=== PATIENT | female | born 1940 | race Caucasian/White ===

== ENCOUNTER 2022-06-13 12:07 | Inpatient (IN) ==
[2022-06-13] MEDS ORDERED: *HR* FentaNYL (PF) 100 MCG/2 ML VIAL IVP ONE (12:16)
[2022-06-13] MEDS ORDERED: 0.9 % Sodium Chloride 500 ML IVC ONE (12:16)
[2022-06-13 15:32] LABS: Basophils % 0.3 %; Eosinophils % 0.2 %; Hematocrit 40.9 % (35.3-44.9); Hemoglobin 13.7 g/dL (11.5-15.4); Immature Granulocytes % 0.4 % (0-4); Lymphocytes # 0.9 K/mcL (0.6-4.6); Lymphocytes % 7.5 %; Mean Corpuscular HGB Conc 33.5 g/dL (31.6-35.5); Mean Corpuscular Hemoglobin 31.1 pg (28.0-33.3); Mean Platelet Volume 10.9 fL (9.4-12.4); Monocytes % 8.8 %; Neutrophils # 9.6 K/mcL (1.6-8.9); Platelet Count 225 K/mcL (140-400); Red Cell Distribution Width 13.3 % (11.5-14.5); Segmented Neutrophils % 82.8 %; White Blood Count 11.5 K/mcL (4.3-11.1)
[2022-06-13 15:42] LABS: INR 1.1; Prothrombin Time 12.3 Seconds (9.4-12.1)
[2022-06-13 15:45] LABS: Activated Partial Thrombo Time 32.6 Seconds (26.0-36.0)
[2022-06-13 15:51] LABS: BUN/Creatinine Ratio 20 (6-26); Blood Urea Nitrogen 18 mg/dL (8-23); Calcium 9.4 mg/dL (8.6-10.3); Carbon Dioxide 26 mEq/L (23-29); Chloride 105 mEq/L (98-107); Glucose 107 mg/dL (70-105); Osmolality,Calculated 294 (280-300); Potassium 3.3 mEq/L (3.5-5.1); Sodium 141 mEq/L (136-145); eGFR For African Americans > 60 (> 60); eGFR For Non-African Americans 60 (> 60)
[2022-06-13] MEDS ORDERED: Perflutren Lipid Microsphere 1.3 ML in 0.9 % Sodium Chloride 8.7 ML IVP PRN (21:38)
[2022-06-13] MEDS ORDERED: Naloxone 0.4 MG/ML INJ IVP PRN (21:58)
[2022-06-13] MEDS ORDERED: Ondansetron 4 MG/2 ML VIAL IVP PRN (22:12)
[2022-06-13] MEDS ORDERED: 0.9 % Sodium Chloride 1,000 ML IVC SCH (22:15)
[2022-06-13] MEDS ORDERED: Potassium Chloride Elixir 20 MEQ/15 ML UDC PO ONE (22:22)
[2022-06-13] MEDS ORDERED: tiZANidine 4 MG TABLET PO PRN (22:36)
[2022-06-14 00:02] LABS: Bilirubin,Urine Negative (Negative); Blood,Urine Negative (Negative); Clarity,Urine Clear (Clear); Color,Urine Light-Yellow (Yellow); Glucose,Urine (UA) Normal (Normal); Ketones,Urine 20 mg/dL (Negative); Leukocyte Esterase,Urine Negative (Negative); Nitrite,Urine Negative (Negative); Protein,Urine Negative (Neg-Trace); Specific Gravity,Urine 1.012 (1.010-1.025); Urobilinogen,Urine Normal (Normal)
[2022-06-14] MEDS ORDERED: *HR* FentaNYL (PF) 100 MCG/2 ML VIAL IVP PRN (09:02)
[2022-06-14] MEDS ORDERED: Lidocaine -MPF 2% 5 ML VIAL ONE (09:03)
[2022-06-14] MEDS ORDERED: *HR* Propofol 200 MG/20 ML VIAL IVP ONE (09:03)
[2022-06-14] MEDS ORDERED: Ondansetron 4 MG/2 ML VIAL ONE (10:10)
[2022-06-14] MEDS ORDERED: Tranexamic Acid 1,000 MG/10 ML VIAL ONE (10:33)
[2022-06-14] MEDS ORDERED: EPHEDrine 50 MG/ML VIAL ONE (10:35)
[2022-06-14] MEDS ORDERED: *HR* HYDROMORPHONE 2 MG/ML VIAL ONE (10:46)
[2022-06-14] MEDS ORDERED: *HR* OxyCODONE/APAP 5/325 TABLET PO PRN (11:26)
[2022-06-14 13:39] LABS: Hematocrit 40.6 % (35.3-44.9); Hemoglobin 13.4 g/dL (11.5-15.4); Mean Corpuscular Hemoglobin 31.2 pg (28.0-33.3); Mean Corpuscular Volume 94.6 fL (83.0-100.0); Mean Platelet Volume 10.7 fL (9.4-12.4); Platelet Count 207 K/mcL (140-400); Red Blood Count 4.29 M/mcL (3.82-4.97); Red Cell Distribution Width 13.6 % (11.5-14.5); White Blood Count 14.6 K/mcL (4.3-11.1)
[2022-06-14 13:46] LABS: Estimated Average Glucose 108 mg/dl; Hemoglobin A1C 5.4 %
[2022-06-14 14:03] LABS: % Iron Saturation 13 % (15-50); BUN/Creatinine Ratio 23 (6-26); Blood Urea Nitrogen 22 mg/dL (8-23); Calcium 9.1 mg/dL (8.6-10.3); Carbon Dioxide 22 mEq/L (23-29); Chloride 107 mEq/L (98-107); Chol/HDL Ratio 2.8 (0-4.9); Cholesterol 212 mg/dL (< 200); Glucose 144 mg/dL (70-105); HDL Cholesterol 75 mg/dL (40-59); Iron 34 mcg/dL (50-170); LDL Cholesterol,Calculated 122 mg/dL (< 100); Osmolality,Calculated 294 (280-300); Potassium 3.9 mEq/L (3.5-5.1); Sodium 139 mEq/L (136-145); Transferrin 194 mg/dL (203-362); Triglycerides 74 mg/dL (< 150); Troponin I < 0.03 ng/mL (< 0.04); eGFR For African Americans > 60 (> 60); eGFR For Non-African Americans 57 (> 60)
[2022-06-14 14:20] LABS: Ferritin 149 ng/mL (10-120)
[2022-06-14] MEDS: CeFAZolin 2 GM/120 ML BAG IVPB SCH ×2 (16:24→23:42)
[2022-06-15] MEDS: Acetaminophen 325 MG TABLET PO PRN ×2 (05:06→12:46)
[2022-06-15 05:57] LABS: Mean Corpuscular HGB Conc 33.3 g/dL (31.6-35.5); Mean Corpuscular Hemoglobin 31.3 pg (28.0-33.3); Mean Corpuscular Volume 93.8 fL (83.0-100.0); Mean Platelet Volume 11.2 fL (9.4-12.4); Platelet Count 201 K/mcL (140-400); Red Blood Count 3.84 M/mcL (3.82-4.97); Red Cell Distribution Width 13.8 % (11.5-14.5); White Blood Count 13.2 K/mcL (4.3-11.1)
[2022-06-15 06:16] LABS: BUN/Creatinine Ratio 33 (6-26); Blood Urea Nitrogen 33 mg/dL (8-23); Calcium 8.8 mg/dL (8.6-10.3); Carbon Dioxide 24 mEq/L (23-29); Chloride 106 mEq/L (98-107); Glucose 116 mg/dL (70-105); Osmolality,Calculated 294 (280-300); Sodium 138 mEq/L (136-145); eGFR For African Americans > 60 (> 60); eGFR For Non-African Americans 52 (> 60)
[2022-06-15] MEDS: Apixaban 2.5 MG TABLET PO SCH ×2 (09:53→20:26)
[2022-06-16] MEDS: Acetaminophen 325 MG TABLET PO PRN ×3 (01:05→21:53)
[2022-06-16 04:27] LABS: Hematocrit 32.2 % (35.3-44.9); Hemoglobin 10.6 g/dL (11.5-15.4); Mean Corpuscular HGB Conc 32.9 g/dL (31.6-35.5); Mean Corpuscular Hemoglobin 31.2 pg (28.0-33.3); Mean Corpuscular Volume 94.7 fL (83.0-100.0); Mean Platelet Volume 11.6 fL (9.4-12.4); Platelet Count 193 K/mcL (140-400); Red Cell Distribution Width 13.8 % (11.5-14.5)
[2022-06-16 05:31] LABS: BUN/Creatinine Ratio 37 (6-26); Blood Urea Nitrogen 34 mg/dL (8-23); Calcium 8.6 mg/dL (8.6-10.3); Carbon Dioxide 26 mEq/L (23-29); Chloride 108 mEq/L (98-107); Glucose 121 mg/dL (70-105); Osmolality,Calculated 299 (280-300); Potassium 4.3 mEq/L (3.5-5.1); Sodium 140 mEq/L (136-145); eGFR For African Americans > 60 (> 60); eGFR For Non-African Americans 59 (> 60)
[2022-06-16] MEDS ORDERED: Cyanocobalamin (B-12) 1,000 MCG/ML VIAL SQ SCH (09:00)
[2022-06-16] MEDS: Apixaban 2.5 MG TABLET PO SCH ×2 (09:08→21:53)
[2022-06-16] MEDS: Iron Sucrose Complex 250 MG in 0.9 % Sodium Chloride 250 ML IVPB SCH (09:10)
[2022-06-16] MEDS: carvediloL 6.25 MG TABLET PO SCH (21:53)
[2022-06-17 05:23] LABS: Basophils # 0.1 K/mcL (0.0-0.2); Basophils % 0.8 %; Eosinophils # 0.2 K/mcL (0.0-0.6); Hematocrit 31.1 % (35.3-44.9); Hemoglobin 10.2 g/dL (11.5-15.4); Immature Granulocytes % 1.5 % (0-4); Lymphocytes # 1.7 K/mcL (0.6-4.6); Lymphocytes % 21.8 %; Mean Corpuscular HGB Conc 32.8 g/dL (31.6-35.5); Mean Corpuscular Hemoglobin 31.2 pg (28.0-33.3); Mean Corpuscular Volume 95.1 fL (83.0-100.0); Mean Platelet Volume 10.9 fL (9.4-12.4); Monocytes # 0.9 K/mcL (0.0-1.3); Monocytes % 12.2 %; Neutrophils # 4.6 K/mcL (1.6-8.9); Platelet Count 204 K/mcL (140-400); Red Blood Count 3.27 M/mcL (3.82-4.97); Red Cell Distribution Width 13.9 % (11.5-14.5); Segmented Neutrophils % 60.7 %; White Blood Count 7.6 K/mcL (4.3-11.1)
[2022-06-17 05:46] LABS: BUN/Creatinine Ratio 44 (6-26); Blood Urea Nitrogen 35 mg/dL (8-23); Calcium 8.3 mg/dL (8.6-10.3); Carbon Dioxide 23 mEq/L (23-29); Chloride 110 mEq/L (98-107); Glucose 112 mg/dL (70-105); Magnesium 1.9 mg/dL (1.6-2.6); Osmolality,Calculated 299 (280-300); Potassium 3.9 mEq/L (3.5-5.1); Sodium 140 mEq/L (136-145); eGFR For African Americans > 60 (> 60); eGFR For Non-African Americans > 60 (> 60)
[2022-06-17] MEDS: Apixaban 2.5 MG TABLET PO SCH (10:16)
[2022-06-17] MEDS: carvediloL 6.25 MG TABLET PO SCH (10:22)
[2022-06-17] MEDS: Iron Sucrose Complex 250 MG in 0.9 % Sodium Chloride 250 ML IVPB SCH (10:22)
[2022-06-17 14:33] VITALS: BP 151/73; PULSE 81; TEMP 98; O2SAT 96
[2022-06-17 14:58] LABS: Adenovirus Not Detected (Not Detect); Bordetella Pertussis Not Detected (Not Detect); Chlamydophila pneumoniae Not Detected (Not Detect); Coronavirus 229E Not Detected (Not Detect); Coronavirus HKU1 Not Detected (Not Detect); Coronavirus NL63 Not Detected (Not Detect); Coronavirus OC43 Not Detected (Not Detect); Human Metapneumovirus Not Detected (Not Detect); Human Rhinovirus/Enterovirus Not Detected (Not Detect); Influenza A Subtype 2009 H1 Not Detected (Not Detect); Influenza B Not Detected (Not Detect); Mycoplasma pneumoniae Not Detected (Not Detect); Parainfluenza Virus 1 Not Detected (Not Detect); Parainfluenza Virus 2 Not Detected (Not Detect); Parainfluenza Virus 3 Not Detected (Not Detect); Parainfluenza Virus 4 Not Detected (Not Detect); Respiratory Syncytial Virus Not Detected (Not Detect); SARS-CoV-2 Not Detected (Not Detect)
== END 2022-06-17 16:45 | DRG 482 ==
LOC: EMEROOARM 12:07 → 4WAOSI 12:07 → SUATTDRO 21:58
PROVIDERS: ADMIT Family Medicine; ATTEND Pharmacist

== ENCOUNTER 2022-07-19 11:28 | Inpatient (IN) ==
[2022-07-19] MEDS ORDERED: Iopamidol - 370 500 ML MLS IVP ONE ×2 (11:39→11:45)
[2022-07-19 11:57] LABS: Hematocrit 40.5 % (35.3-44.9); Hemoglobin 13.5 g/dL (11.5-15.4); Mean Corpuscular HGB Conc 33.3 g/dL (31.6-35.5); Mean Corpuscular Hemoglobin 31.6 pg (28.0-33.3); Mean Corpuscular Volume 94.8 fL (83.0-100.0); Mean Platelet Volume 10.3 fL (9.4-12.4); Platelet Count 258 K/mcL (140-400); Red Blood Count 4.27 M/mcL (3.82-4.97); White Blood Count 7.9 K/mcL (4.3-11.1)
[2022-07-19] MEDS: niCARdipine 20 MG/200 ML MLS IVC SCH ×2 (12:05→14:43)
[2022-07-19 12:08] LABS: INR 1.2; Prothrombin Time 13.6 Seconds (9.4-12.1)
[2022-07-19 13:01] LABS: Troponin I < 0.03 ng/mL (< 0.04)
[2022-07-19] MEDS ORDERED: Aspirin 325 MG TABLET PO ONE (13:05)
[2022-07-19 13:11] LABS: BUN/Creatinine Ratio 22 (6-26); Blood Urea Nitrogen 20 mg/dL (8-23); Calcium 9.6 mg/dL (8.6-10.3); Carbon Dioxide 26 mEq/L (23-29); Chloride 103 mEq/L (98-107); Glucose 113 mg/dL (70-105); Osmolality,Calculated 291 (280-300); Potassium 3.5 mEq/L (3.5-5.1); Sodium 139 mEq/L (136-145)
[2022-07-19] MEDS ORDERED: Naloxone 0.4 MG/ML INJ IVP PRN (14:30)
[2022-07-20 05:17] LABS: Basophils % 0.4 %; Eosinophils # 0.3 K/mcL (0.0-0.6); Eosinophils % 3.2 %; Immature Granulocytes % 0.4 % (0-4); Lymphocytes # 1.2 K/mcL (0.6-4.6); Mean Corpuscular HGB Conc 33.3 g/dL (31.6-35.5); Mean Corpuscular Hemoglobin 31.6 pg (28.0-33.3); Mean Corpuscular Volume 94.9 fL (83.0-100.0); Mean Platelet Volume 10.3 fL (9.4-12.4); Monocytes # 0.9 K/mcL (0.0-1.3); Monocytes % 10.4 %; Neutrophils # 6.6 K/mcL (1.6-8.9); Platelet Count 283 K/mcL (140-400); Red Blood Count 4.11 M/mcL (3.82-4.97); Red Cell Distribution Width 13.9 % (11.5-14.5); Segmented Neutrophils % 72.6 %; White Blood Count 9.1 K/mcL (4.3-11.1)
[2022-07-20 05:36] LABS: Calcium 9.3 mg/dL (8.6-10.3); Potassium 3.4 mEq/L (3.5-5.1)
[2022-07-20] MEDS ORDERED: Aspirin Enteric Coated 81 MG Tablet PO SCH (09:00)
[2022-07-20 12:05] LABS: Estimated Average Glucose 100 mg/dl; Hemoglobin A1C 5.1 %
[2022-07-20] MEDS: carvediloL 6.25 MG TABLET PO SCH (16:43)
[2022-07-21] MEDS: Aspirin Enteric Coated 325 MG Tablet PO SCH (07:51)
[2022-07-21] MEDS: carvediloL 6.25 MG TABLET PO SCH ×2 (07:52→16:05)
[2022-07-22 05:22] LABS: Calcium 9.3 mg/dL (8.6-10.3); Potassium 3.6 mEq/L (3.5-5.1)
[2022-07-22] MEDS: Aspirin Enteric Coated 325 MG Tablet PO SCH (07:37)
[2022-07-22] MEDS: carvediloL 6.25 MG TABLET PO SCH ×2 (07:37→16:46)
[2022-07-22] MEDS ORDERED: 0.9 % Sodium Chloride 500 ML IVC ONE (09:36)
[2022-07-22] MEDS ORDERED: Lidocaine Viscous Oral Soln 15 ML SOLUTION MM PRN (09:36)
[2022-07-22] MEDS: *HR* Midazolam HCl 5 MG/5 ML VIAL IVP PRN ×3 (10:35→10:42)
[2022-07-22] MEDS: *HR* FentaNYL (PF) 100 MCG/2 ML VIAL IVP PRN ×3 (10:35→10:42)
[2022-07-23 01:29] LABS: Hematocrit 39.5 % (35.3-44.9); Mean Corpuscular HGB Conc 32.9 g/dL (31.6-35.5); Mean Corpuscular Hemoglobin 31.6 pg (28.0-33.3); Mean Corpuscular Volume 95.9 fL (83.0-100.0); Mean Platelet Volume 10.4 fL (9.4-12.4); Platelet Count 274 K/mcL (140-400); Red Blood Count 4.12 M/mcL (3.82-4.97); White Blood Count 9.8 K/mcL (4.3-11.1)
[2022-07-23 01:50] LABS: Calcium 9.1 mg/dL (8.6-10.3); Potassium 3.5 mEq/L (3.5-5.1)
[2022-07-23 07:45] VITALS: BP 175/91; PULSE 78; TEMP 98.2; O2SAT 94
[2022-07-23] MEDS: carvediloL 6.25 MG TABLET PO SCH (07:57)
[2022-07-23] MEDS: Aspirin Enteric Coated 325 MG Tablet PO SCH (07:58)
== END 2022-07-23 16:15 | disposition home or self-care (01) | DRG 65 ==
LOC: EMEROOARM 11:28 → 2NNU 11:28 → SUATTDRO 14:48 → 3BNU 15:01 → SUATTDRO 18:07
PROVIDERS: ADMIT Internal Medicine; ATTEND Internal Medicine